=== PATIENT | female | born 1930 | race African-American/Black ===

== ENCOUNTER 2018-01-11 15:02 | Inpatient (IN) | payer OTHER, MEDICARE ==
[2018-01-11] MEDS: SOD CHLORIDE 0.9% 1,000 ML IV (01:30)
[2018-01-11] MEDS: SODIUM CHLORIDE 0.9% 1L BAG IV* (19:26)
[2018-01-11 20:43] LABS: ADD MAN DIFF? NO
[2018-01-11 20:46] LABS: WHITE BLOOD COUNT 13.5 10^3/ul (4.8-10.8)
[2018-01-11 20:46] LABS: ABNORMAL IP MESSAGE 1; BASOPHIL # 0.1 10^3/ul (0.0-0.1); BASOPHILS % 0.4 % (0.0-2.0); EOSINOPHILS # 0.4 10^3/ul (0.0-0.5); EOSINOPHILS % 2.8 % (0.0-7.0); HEMATOCRIT 34.7 % (37.0-47.0); HEMOGLOBIN 12.1 g/dl (12.0-16.0); LYMPHOCYTES # 2.1 10^3/ul (0.8-2.9); LYMPHOCYTES % 15.2 % (15.0-51.0); MEAN CORPUSCULAR HEMOGLOBIN 31.4 pg (29.0-33.0); MEAN CORPUSCULAR HGB CONC 34.9 g/dl (32.0-37.0); MEAN CORPUSCULAR VOLUME 90.1 fl (82.0-101.0); MEAN PLATELET VOLUME 10.6 fl (7.4-10.4); MONOCYTE # 1.8 10^3/ul (0.3-0.9); NEUTROPHIL # 9.2 10^3/ul (1.6-7.5); NEUTROPHILS % 68.1 % (39.0-77.0); PLATELET COUNT 240 10^3/UL (140-415); RED BLOOD COUNT 3.85 10^6/ul (4.20-5.40); RED CELL DISTRIBUTION WIDTH 12.4 % (11.5-14.5)
[2018-01-11 20:57] LABS: POSITIVE DIFF @See below
[2018-01-11 21:07] LABS: ALANINE AMINOTRANSFERASE 32 IU/L (13-69); ALBUMIN 3.8 g/dl (3.3-4.9); ALBUMIN/GLOBULIN RATIO 0.92; ALKALINE PHOSPHATASE 95 IU/L (42-121); ANION GAP 10 (8-16); ASPARTATE AMINO TRANSFERASE 29 IU/L (15-46); BILIRUBIN,INDIRECT 0.3 mg/dl (0-1.1); BILIRUBIN,TOTAL 0.3 mg/dl (0.2-1.3); BLOOD UREA NITROGEN 19 mg/dl (7-20); CALCIUM 9.5 mg/dl (8.4-10.2); CARBON DIOXIDE 34 mmol/L (21-31); CHLORIDE 99 mmol/L (97-110); CREATININE 1.19 mg/dl (0.44-1.00); GLUCOSE 204 mg/dl (70-220); POTASSIUM 3.3 mmol/L (3.5-5.1); SODIUM 140 mmol/L (135-144); TOTAL PROTEIN 7.9 g/dl (6.1-8.1)
[2018-01-11 21:08] LABS: LACTIC ACID 0.8 mmol/L (0.5-2.0)
[2018-01-11 21:16] LABS: INR 1.17; PROTIME 15.1 Sec (11.9-14.9); PT RATIO 1.2
[2018-01-11 21:17] LABS: PARTIAL THROMBOPLASTIN TIME 33.2 Sec (25.0-35.0)
[2018-01-11 21:19] LABS: TROPONIN-I < 0.012 ng/ml (0.00-0.12)
[2018-01-11] MEDS: CEFTRIAXONE 1 GM/50 ML (PMX) 50 ML IVPB (21:39)
[2018-01-11] MEDS: VANCOMYCIN 1 GM (PMX) 250 ML IVPB (21:40)
[2018-01-11 21:45] LABS: LACTIC ACID 0.8 mmol/L (0.5-2.0)
[2018-01-12] MEDS ORDERED: ACETAMINOPHEN 325 MG TAB PO
[2018-01-12] MEDS ORDERED: ONDANSETRON 4 MG INJ IV
[2018-01-12 00:11] LABS: LACTIC ACID 0.9 mmol/L (0.5-2.0)
[2018-01-12] MEDS ORDERED: GLUCOSE GEL 15 GRAM TUBE BUCCAL (03:00)
[2018-01-12] MEDS ORDERED: GLUCAGON 1 MG INJ IM (03:00)
[2018-01-12] MEDS ORDERED: DEXTROSE 50% 50 ML SYRINGE IV ×2 (03:00)
[2018-01-12] MEDS ORDERED: GLUCOSE GEL 15 GRAM TUBE PO ×2 (03:00)
[2018-01-12] MEDS: NACL 0.9% 3 ML SYG IV (06:20)
[2018-01-12 06:30] LABS: ADD MAN DIFF? NO
[2018-01-12 06:40] LABS: WHITE BLOOD COUNT 13.2 10^3/ul (4.8-10.8)
[2018-01-12 06:40] LABS: ABNORMAL IP MESSAGE 1; BASOPHIL # 0.1 10^3/ul (0.0-0.1); BASOPHILS % 0.5 % (0.0-2.0); EOSINOPHILS # 0.4 10^3/ul (0.0-0.5); EOSINOPHILS % 3.2 % (0.0-7.0); HEMOGLOBIN 11.2 g/dl (12.0-16.0); LYMPHOCYTES # 2.3 10^3/ul (0.8-2.9); LYMPHOCYTES % 17.4 % (15.0-51.0); MEAN CORPUSCULAR HGB CONC 33.9 g/dl (32.0-37.0); MEAN CORPUSCULAR VOLUME 91.4 fl (82.0-101.0); MEAN PLATELET VOLUME 10.8 fl (7.4-10.4); MONOCYTE # 1.7 10^3/ul (0.3-0.9); MONOCYTES % 13.2 % (0.0-11.0); NEUTROPHIL # 8.6 10^3/ul (1.6-7.5); NEUTROPHILS % 65.2 % (39.0-77.0); PLATELET COUNT 232 10^3/UL (140-415); RED BLOOD COUNT 3.61 10^6/ul (4.20-5.40); RED CELL DISTRIBUTION WIDTH 12.4 % (11.5-14.5)
[2018-01-12 06:41] LABS: POSITIVE DIFF @See below
[2018-01-12 07:28] LABS: ALANINE AMINOTRANSFERASE 32 IU/L (13-69); ALBUMIN 3.3 g/dl (3.3-4.9); ALBUMIN/GLOBULIN RATIO 0.86; ALKALINE PHOSPHATASE 90 IU/L (42-121); ANION GAP 10 (8-16); ASPARTATE AMINO TRANSFERASE 29 IU/L (15-46); BILIRUBIN,INDIRECT 0.5 mg/dl (0-1.1); BILIRUBIN,TOTAL 0.5 mg/dl (0.2-1.3); BLOOD UREA NITROGEN 15 mg/dl (7-20); CALCIUM 9.1 mg/dl (8.4-10.2); CARBON DIOXIDE 35 mmol/L (21-31); CHLORIDE 100 mmol/L (97-110); CHOLESTEROL 109 mg/dl (100-200); CREATININE 1.02 mg/dl (0.44-1.00); GLUCOSE 152 mg/dl (70-220); HDL CHOLESTEROL 36 mg/dl (33-92); LDL CHOLESTEROL,CALCULATED 61 mg/dl; POTASSIUM 3.5 mmol/L (3.5-5.1); SODIUM 141 mmol/L (135-144); TOTAL PROTEIN 7.1 g/dl (6.1-8.1); TRIGLYCERIDES 58 mg/dl (0-149)
[2018-01-12 07:45] LABS: HEMOGLOBIN A1C 6.1 % (0-5.9)
[2018-01-12] MEDS: LEVALBUTEROL (NEB) 0.63 MG/3 ML AMP HHN ×2 (08:05→20:53)
[2018-01-12] MEDS: IPRATROPIUM (NEB) 0.5 MG/2.5 ML AMP HHN ×2 (08:05→20:53)
[2018-01-12] MEDS: GUAIFENESIN 20 MG/ML 5ML CUP PO (08:28)
[2018-01-12] MEDS: TIMOLOL 0.5% 5 ML OPH BOTH EYES (08:28)
[2018-01-12] MEDS: metFORMIN 500 MG TAB PO ×4 (08:29→17:36)
[2018-01-12] MEDS: INSULIN ASPART [NOVOLOG] 3 ML PEN SC ×4 (08:34→20:35)
[2018-01-12] MEDS: CHOLECALCIFEROL 400 UNITS TAB PO (09:31)
[2018-01-12] MEDS: ALLOPURINOL 300 MG TAB PO (09:32)
[2018-01-12] MEDS: AZITHROMYCIN 500MG/NS (PMX) 250 ML IVPB (09:33)
[2018-01-12] MEDS: AMLODIPINE 2.5 MG TAB PO (09:33)
[2018-01-12] MEDS: CEFTRIAXONE 1 GM/50 ML (PMX) 50 ML IVPB ×2 (10:55→20:31)
[2018-01-12] MEDS: ATORVASTATIN 20 MG TAB PO (17:33)
[2018-01-12] MEDS: BIMATOPROST 0.01% 2.5 ML BTL BOTH EYES (20:31)
[2018-01-13] MEDS: ACCU-CHEK XX (02:15)
[2018-01-13 05:47] LABS: ADD MAN DIFF? NO
[2018-01-13 05:58] LABS: WHITE BLOOD COUNT 11.9 10^3/ul (4.8-10.8)
[2018-01-13 05:58] LABS: BASOPHIL # 0.1 10^3/ul (0.0-0.1); BASOPHILS % 0.6 % (0.0-2.0); EOSINOPHILS # 0.5 10^3/ul (0.0-0.5); EOSINOPHILS % 3.9 % (0.0-7.0); LYMPHOCYTES # 2.2 10^3/ul (0.8-2.9); LYMPHOCYTES % 18.3 % (15.0-51.0); MEAN CORPUSCULAR HEMOGLOBIN 31.7 pg (29.0-33.0); MEAN CORPUSCULAR HGB CONC 34.4 g/dl (32.0-37.0); MEAN CORPUSCULAR VOLUME 92.2 fl (82.0-101.0); MEAN PLATELET VOLUME 11.2 fl (7.4-10.4); MONOCYTE # 1.5 10^3/ul (0.3-0.9); MONOCYTES % 12.4 % (0.0-11.0); NEUTROPHIL # 7.6 10^3/ul (1.6-7.5); NEUTROPHILS % 64.1 % (39.0-77.0); PLATELET COUNT 207 10^3/UL (140-415); RED BLOOD COUNT 3.47 10^6/ul (4.20-5.40); RED CELL DISTRIBUTION WIDTH 12.7 % (11.5-14.5)
[2018-01-13 06:19] LABS: ALANINE AMINOTRANSFERASE 35 IU/L (13-69); ALBUMIN 3.2 g/dl (3.3-4.9); ALKALINE PHOSPHATASE 77 IU/L (42-121); ANION GAP 13 (8-16); ASPARTATE AMINO TRANSFERASE 37 IU/L (15-46); BILIRUBIN,INDIRECT 0.2 mg/dl (0-1.1); BILIRUBIN,TOTAL 0.2 mg/dl (0.2-1.3); BLOOD UREA NITROGEN 16 mg/dl (7-20); CALCIUM 8.9 mg/dl (8.4-10.2); CARBON DIOXIDE 34 mmol/L (21-31); CHLORIDE 100 mmol/L (97-110); CREATININE 0.95 mg/dl (0.44-1.00); GLUCOSE 146 mg/dl (70-220); POTASSIUM 3.7 mmol/L (3.5-5.1); SODIUM 143 mmol/L (135-144); TOTAL PROTEIN 7.1 g/dl (6.1-8.1)
[2018-01-13 06:20] LABS: ALBUMIN/GLOBULIN RATIO 0.82
[2018-01-13] MEDS: ALLOPURINOL 300 MG TAB PO (08:32)
[2018-01-13] MEDS: AZITHROMYCIN 500MG/NS (PMX) 250 ML IVPB (08:32)
[2018-01-13] MEDS: CHOLECALCIFEROL 400 UNITS TAB PO (08:32)
[2018-01-13] MEDS: metFORMIN 500 MG TAB PO ×2 (08:32→17:28)
[2018-01-13] MEDS: AMLODIPINE 2.5 MG TAB PO (08:33)
[2018-01-13] MEDS: TIMOLOL 0.5% 5 ML OPH BOTH EYES (08:33)
[2018-01-13] MEDS: INSULIN ASPART [NOVOLOG] 3 ML PEN SC ×4 (08:35→21:00)
[2018-01-13 09:02] LABS: PHOSPHORUS 3.8 mg/dl (2.5-4.9)
[2018-01-13 09:02] LABS: MAGNESIUM 1.7 mg/dl (1.7-2.5)
[2018-01-13] MEDS: CEFTRIAXONE 1 GM/50 ML (PMX) 50 ML IVPB ×2 (09:59→21:02)
[2018-01-13] MEDS: INFLUENZA VIRUS VACCINE 0.5 ML (DISPENSING) IM* (11:36)
[2018-01-13] MEDS: ENOXAPARIN 40 MG/0.4 ML SYG SC (15:30)
[2018-01-13] MEDS: ATORVASTATIN 20 MG TAB PO (17:28)
[2018-01-13] MEDS ORDERED: VITAMIN A & D 5 GM OINT PACKET TOP (19:37)
[2018-01-13] MEDS: BIMATOPROST 0.01% 2.5 ML BTL BOTH EYES (21:02)
[2018-01-13] MEDS: IPRATROPIUM (NEB) 0.5 MG/2.5 ML AMP HHN (21:44)
[2018-01-13] MEDS: LEVALBUTEROL (NEB) 0.63 MG/3 ML AMP HHN (21:44)
[2018-01-14] MEDS: ACCU-CHEK XX (02:00)
[2018-01-14 06:43] LABS: ADD MAN DIFF? NO
[2018-01-14 06:53] LABS: BASOPHIL # 0.1 10^3/ul (0.0-0.1); BASOPHILS % 0.7 % (0.0-2.0); EOSINOPHILS # 0.4 10^3/ul (0.0-0.5); HEMATOCRIT 31.7 % (37.0-47.0); HEMOGLOBIN 10.7 g/dl (12.0-16.0); LYMPHOCYTES # 2.3 10^3/ul (0.8-2.9); LYMPHOCYTES % 22.8 % (15.0-51.0); MEAN CORPUSCULAR HEMOGLOBIN 31.3 pg (29.0-33.0); MEAN CORPUSCULAR HGB CONC 33.8 g/dl (32.0-37.0); MEAN CORPUSCULAR VOLUME 92.7 fl (82.0-101.0); MEAN PLATELET VOLUME 11.1 fl (7.4-10.4); MONOCYTE # 1.1 10^3/ul (0.3-0.9); MONOCYTES % 11.1 % (0.0-11.0); NEUTROPHIL # 6.2 10^3/ul (1.6-7.5); NEUTROPHILS % 60.8 % (39.0-77.0); PLATELET COUNT 255 10^3/UL (140-415); RED BLOOD COUNT 3.42 10^6/ul (4.20-5.40); RED CELL DISTRIBUTION WIDTH 12.6 % (11.5-14.5)
[2018-01-14 06:53] LABS: WHITE BLOOD COUNT 10.2 10^3/ul (4.8-10.8)
[2018-01-14 07:27] LABS: ANION GAP 10 (8-16); BLOOD UREA NITROGEN 18 mg/dl (7-20); CALCIUM 9.1 mg/dl (8.4-10.2); CARBON DIOXIDE 35 mmol/L (21-31); CHLORIDE 101 mmol/L (97-110); CREATININE 0.91 mg/dl (0.44-1.00); GLUCOSE 144 mg/dl (70-220); POTASSIUM 3.7 mmol/L (3.5-5.1); SODIUM 142 mmol/L (135-144)
[2018-01-14] MEDS: INSULIN ASPART [NOVOLOG] 3 ML PEN SC ×4 (08:15→21:00)
[2018-01-14] MEDS: ENOXAPARIN 40 MG/0.4 ML SYG SC (08:34)
[2018-01-14] MEDS: CEFTRIAXONE 1 GM/50 ML (PMX) 50 ML IVPB (08:36)
[2018-01-14] MEDS: AZITHROMYCIN 500MG/NS (PMX) 250 ML IVPB (08:36)
[2018-01-14] MEDS: metFORMIN 500 MG TAB PO ×2 (08:37→17:48)
[2018-01-14] MEDS: CHOLECALCIFEROL 400 UNITS TAB PO (08:37)
[2018-01-14] MEDS: ALLOPURINOL 300 MG TAB PO (08:37)
[2018-01-14] MEDS: AMLODIPINE 2.5 MG TAB PO (08:37)
[2018-01-14] MEDS: TIMOLOL 0.5% 5 ML OPH BOTH EYES (08:38)
[2018-01-14] MEDS: LEVALBUTEROL (NEB) 0.63 MG/3 ML AMP HHN ×4 (10:46→21:14)
[2018-01-14] MEDS: IPRATROPIUM (NEB) 0.5 MG/2.5 ML AMP HHN ×4 (10:46→21:14)
[2018-01-14] MEDS ORDERED: IPRATROPIUM (NEB) 0.5 MG/2.5 ML AMP HHN (13:00)
[2018-01-14] MEDS ORDERED: LEVALBUTEROL (NEB) 0.63 MG/3 ML AMP HHN (13:00)
[2018-01-14] MEDS: LEVOFLOXACIN 500 MG TAB PO (14:04)
[2018-01-14] MEDS: ATORVASTATIN 20 MG TAB PO (17:47)
[2018-01-14] MEDS: BIMATOPROST 0.01% 2.5 ML BTL BOTH EYES (21:00)
[2018-01-15] MEDS: LEVALBUTEROL (NEB) 0.63 MG/3 ML AMP HHN ×5 (01:00→20:44)
[2018-01-15] MEDS: IPRATROPIUM (NEB) 0.5 MG/2.5 ML AMP HHN ×5 (01:00→20:44)
[2018-01-15] MEDS: ACCU-CHEK XX (01:12)
[2018-01-15] MEDS: INSULIN ASPART [NOVOLOG] 3 ML PEN SC ×4 (08:15→20:31)
[2018-01-15] MEDS: ALLOPURINOL 300 MG TAB PO (08:25)
[2018-01-15] MEDS: LEVOFLOXACIN 500 MG TAB PO (08:25)
[2018-01-15] MEDS: AMLODIPINE 2.5 MG TAB PO (08:25)
[2018-01-15] MEDS: CHOLECALCIFEROL 400 UNITS TAB PO (08:25)
[2018-01-15] MEDS: ENOXAPARIN 40 MG/0.4 ML SYG SC (08:26)
[2018-01-15] MEDS: metFORMIN 500 MG TAB PO ×3 (08:31→18:27)
[2018-01-15] MEDS: TIMOLOL 0.5% 5 ML OPH BOTH EYES (08:34)
[2018-01-15] MEDS: ONDANSETRON 4 MG INJ IV (11:51)
[2018-01-15] MEDS: ONDANSETRON 4 MG INJ IM (13:38)
[2018-01-15] MEDS: ATORVASTATIN 20 MG TAB PO (18:27)
[2018-01-15] MEDS: PANTOPRAZOLE (EC) 40 MG TAB PO (18:32)
[2018-01-15] MEDS: BIMATOPROST 0.01% 2.5 ML BTL BOTH EYES (20:27)
[2018-01-16] MEDS: LEVALBUTEROL (NEB) 0.63 MG/3 ML AMP HHN ×5 (01:00→20:38)
[2018-01-16] MEDS: ACCU-CHEK XX (02:00)
[2018-01-16] MEDS: PANTOPRAZOLE (EC) 40 MG TAB PO (05:54)
[2018-01-16 06:11] LABS: ADD MAN DIFF? NO
[2018-01-16 06:22] LABS: BASOPHIL # 0.1 10^3/ul (0.0-0.1); BASOPHILS % 0.6 % (0.0-2.0); EOSINOPHILS # 0.2 10^3/ul (0.0-0.5); EOSINOPHILS % 2.4 % (0.0-7.0); HEMATOCRIT 31.1 % (37.0-47.0); HEMOGLOBIN 10.2 g/dl (12.0-16.0); LYMPHOCYTES # 1.6 10^3/ul (0.8-2.9); MEAN CORPUSCULAR HEMOGLOBIN 30.4 pg (29.0-33.0); MEAN CORPUSCULAR HGB CONC 32.8 g/dl (32.0-37.0); MEAN CORPUSCULAR VOLUME 92.6 fl (82.0-101.0); MEAN PLATELET VOLUME 10.1 fl (7.4-10.4); MONOCYTES % 9.6 % (0.0-11.0); NEUTROPHIL # 7.1 10^3/ul (1.6-7.5); NEUTROPHILS % 70.6 % (39.0-77.0); PLATELET COUNT 282 10^3/UL (140-415); RED BLOOD COUNT 3.36 10^6/ul (4.20-5.40); RED CELL DISTRIBUTION WIDTH 12.4 % (11.5-14.5)
[2018-01-16 06:47] LABS: ANION GAP 10 (8-16); BLOOD UREA NITROGEN 14 mg/dl (7-20); CALCIUM 9.4 mg/dl (8.4-10.2); CARBON DIOXIDE 37 mmol/L (21-31); CHLORIDE 100 mmol/L (97-110); GLUCOSE 172 mg/dl (70-220); POTASSIUM 3.7 mmol/L (3.5-5.1); SODIUM 143 mmol/L (135-144)
[2018-01-16] MEDS: IPRATROPIUM (NEB) 0.5 MG/2.5 ML AMP HHN ×4 (08:08→20:38)
[2018-01-16] MEDS: INSULIN ASPART [NOVOLOG] 3 ML PEN SC ×4 (09:40→20:34)
[2018-01-16] MEDS: CHOLECALCIFEROL 400 UNITS TAB PO (09:48)
[2018-01-16] MEDS: LEVOFLOXACIN 500 MG TAB PO (09:48)
[2018-01-16] MEDS: ALLOPURINOL 300 MG TAB PO (09:49)
[2018-01-16] MEDS: metFORMIN 500 MG TAB PO ×2 (09:49→18:16)
[2018-01-16] MEDS: TIMOLOL 0.5% 5 ML OPH BOTH EYES (09:50)
[2018-01-16] MEDS: AMLODIPINE 2.5 MG TAB PO (09:50)
[2018-01-16] MEDS: ENOXAPARIN 40 MG/0.4 ML SYG SC (09:54)
[2018-01-16] MEDS: ATORVASTATIN 20 MG TAB PO (18:16)
[2018-01-16] MEDS: BIMATOPROST 0.01% 2.5 ML BTL BOTH EYES (20:31)
[2018-01-17] MEDS: ACCU-CHEK XX (00:30)
[2018-01-17] MEDS: PANTOPRAZOLE (EC) 40 MG TAB PO (06:17)
[2018-01-17 06:26] LABS: ADD MAN DIFF? NO
[2018-01-17 06:30] LABS: WHITE BLOOD COUNT 11.1 10^3/ul (4.8-10.8)
[2018-01-17 06:30] LABS: BASOPHIL # 0.1 10^3/ul (0.0-0.1); BASOPHILS % 0.6 % (0.0-2.0); EOSINOPHILS # 0.3 10^3/ul (0.0-0.5); EOSINOPHILS % 2.9 % (0.0-7.0); HEMATOCRIT 30.1 % (37.0-47.0); LYMPHOCYTES # 1.9 10^3/ul (0.8-2.9); LYMPHOCYTES % 17.2 % (15.0-51.0); MEAN CORPUSCULAR HEMOGLOBIN 30.9 pg (29.0-33.0); MEAN CORPUSCULAR HGB CONC 33.2 g/dl (32.0-37.0); MEAN CORPUSCULAR VOLUME 92.9 fl (82.0-101.0); MEAN PLATELET VOLUME 10.2 fl (7.4-10.4); MONOCYTES % 9.2 % (0.0-11.0); NEUTROPHIL # 7.7 10^3/ul (1.6-7.5); NEUTROPHILS % 69.4 % (39.0-77.0); PLATELET COUNT 284 10^3/UL (140-415); RED BLOOD COUNT 3.24 10^6/ul (4.20-5.40); RED CELL DISTRIBUTION WIDTH 12.5 % (11.5-14.5)
[2018-01-17 06:55] LABS: ANION GAP 11 (8-16); BLOOD UREA NITROGEN 16 mg/dl (7-20); CALCIUM 9.3 mg/dl (8.4-10.2); CARBON DIOXIDE 35 mmol/L (21-31); CHLORIDE 99 mmol/L (97-110); CREATININE 1.02 mg/dl (0.44-1.00); GLUCOSE 139 mg/dl (70-220); SODIUM 141 mmol/L (135-144)
[2018-01-17] MEDS: LEVALBUTEROL (NEB) 0.63 MG/3 ML AMP HHN ×4 (08:07→21:53)
[2018-01-17] MEDS: IPRATROPIUM (NEB) 0.5 MG/2.5 ML AMP HHN ×4 (08:07→21:53)
[2018-01-17] MEDS: LEVOFLOXACIN 500 MG TAB PO (08:17)
[2018-01-17] MEDS: AMLODIPINE 2.5 MG TAB PO (08:17)
[2018-01-17] MEDS: ALLOPURINOL 300 MG TAB PO (08:17)
[2018-01-17] MEDS: CHOLECALCIFEROL 400 UNITS TAB PO (08:17)
[2018-01-17] MEDS: TIMOLOL 0.5% 5 ML OPH BOTH EYES (08:18)
[2018-01-17] MEDS: INSULIN ASPART [NOVOLOG] 3 ML PEN SC ×4 (08:23→20:20)
[2018-01-17] MEDS: ENOXAPARIN 40 MG/0.4 ML SYG SC (08:24)
[2018-01-17] MEDS: metFORMIN 500 MG TAB PO ×2 (08:26→18:10)
[2018-01-17] MEDS: ATORVASTATIN 20 MG TAB PO (18:10)
[2018-01-17] MEDS: BIMATOPROST 0.01% 2.5 ML BTL BOTH EYES (20:16)
[2018-01-18] MEDS: ACCU-CHEK XX (01:27)
[2018-01-18] MEDS: PANTOPRAZOLE (EC) 40 MG TAB PO (05:56)
[2018-01-18 06:12] LABS: ADD MAN DIFF? NO
[2018-01-18 06:21] LABS: BASOPHIL # 0.1 10^3/ul (0.0-0.1); BASOPHILS % 0.6 % (0.0-2.0); EOSINOPHILS # 0.3 10^3/ul (0.0-0.5); EOSINOPHILS % 2.9 % (0.0-7.0); HEMATOCRIT 33.9 % (37.0-47.0); HEMOGLOBIN 11.4 g/dl (12.0-16.0); LYMPHOCYTES # 2.1 10^3/ul (0.8-2.9); MEAN CORPUSCULAR HEMOGLOBIN 30.9 pg (29.0-33.0); MEAN CORPUSCULAR HGB CONC 33.6 g/dl (32.0-37.0); MEAN CORPUSCULAR VOLUME 91.9 fl (82.0-101.0); MEAN PLATELET VOLUME 10.8 fl (7.4-10.4); MONOCYTE # 0.9 10^3/ul (0.3-0.9); MONOCYTES % 7.5 % (0.0-11.0); NEUTROPHIL # 8.3 10^3/ul (1.6-7.5); NEUTROPHILS % 70.2 % (39.0-77.0); PLATELET COUNT 290 10^3/UL (140-415); RED BLOOD COUNT 3.69 10^6/ul (4.20-5.40); RED CELL DISTRIBUTION WIDTH 12.5 % (11.5-14.5)
[2018-01-18 06:21] LABS: WHITE BLOOD COUNT 11.7 10^3/ul (4.8-10.8)
[2018-01-18 06:35] LABS: ALANINE AMINOTRANSFERASE 38 IU/L (13-69); ALBUMIN 3.6 g/dl (3.3-4.9); ALBUMIN/GLOBULIN RATIO 0.83; ALKALINE PHOSPHATASE 80 IU/L (42-121); ANION GAP 14 (8-16); ASPARTATE AMINO TRANSFERASE 49 IU/L (15-46); BILIRUBIN,INDIRECT 0.4 mg/dl (0-1.1); BILIRUBIN,TOTAL 0.4 mg/dl (0.2-1.3); BLOOD UREA NITROGEN 15 mg/dl (7-20); CALCIUM 9.6 mg/dl (8.4-10.2); CARBON DIOXIDE 35 mmol/L (21-31); CHLORIDE 100 mmol/L (97-110); CREATININE 0.99 mg/dl (0.44-1.00); GLUCOSE 128 mg/dl (70-220); POTASSIUM 3.9 mmol/L (3.5-5.1); SODIUM 145 mmol/L (135-144); TOTAL PROTEIN 7.9 g/dl (6.1-8.1)
[2018-01-18] MEDS: INSULIN ASPART [NOVOLOG] 3 ML PEN SC ×4 (08:15→20:11)
[2018-01-18] MEDS: LEVALBUTEROL (NEB) 0.63 MG/3 ML AMP HHN ×4 (09:04→21:54)
[2018-01-18] MEDS: IPRATROPIUM (NEB) 0.5 MG/2.5 ML AMP HHN ×4 (09:04→21:54)
[2018-01-18] MEDS: ALLOPURINOL 300 MG TAB PO (09:29)
[2018-01-18] MEDS: CHOLECALCIFEROL 400 UNITS TAB PO (09:29)
[2018-01-18] MEDS: LEVOFLOXACIN 500 MG TAB PO (09:29)
[2018-01-18] MEDS: TIMOLOL 0.5% 5 ML OPH BOTH EYES (09:29)
[2018-01-18] MEDS: AMLODIPINE 2.5 MG TAB PO (09:30)
[2018-01-18] MEDS: ENOXAPARIN 40 MG/0.4 ML SYG SC (09:34)
[2018-01-18] MEDS: metFORMIN 500 MG TAB PO ×2 (09:35→17:29)
[2018-01-18 14:56] LABS: URIC ACID 3.6 mg/dl (3.1-7.9)
[2018-01-18 15:04] LABS: B-TYPE NATRIURETIC PEPTIDE 463 PG/ML (0-450)
[2018-01-18] MEDS: FUROSEMIDE 40 MG TAB PO (15:57)
[2018-01-18] MEDS: ATORVASTATIN 20 MG TAB PO (17:29)
[2018-01-18] MEDS: BIMATOPROST 0.01% 2.5 ML BTL BOTH EYES (20:11)
[2018-01-19] MEDS: ACCU-CHEK XX (02:00)
[2018-01-19 05:36] LABS: ADD MAN DIFF? NO
[2018-01-19 05:39] LABS: BASOPHIL # 0.1 10^3/ul (0.0-0.1); BASOPHILS % 0.8 % (0.0-2.0); EOSINOPHILS # 0.4 10^3/ul (0.0-0.5); EOSINOPHILS % 3.2 % (0.0-7.0); HEMATOCRIT 30.3 % (37.0-47.0); HEMOGLOBIN 10.4 g/dl (12.0-16.0); LYMPHOCYTES # 2.1 10^3/ul (0.8-2.9); LYMPHOCYTES % 18.5 % (15.0-51.0); MEAN CORPUSCULAR HEMOGLOBIN 31.1 pg (29.0-33.0); MEAN CORPUSCULAR HGB CONC 34.3 g/dl (32.0-37.0); MEAN CORPUSCULAR VOLUME 90.7 fl (82.0-101.0); MEAN PLATELET VOLUME 10.6 fl (7.4-10.4); MONOCYTE # 0.9 10^3/ul (0.3-0.9); MONOCYTES % 8.2 % (0.0-11.0); NEUTROPHIL # 7.8 10^3/ul (1.6-7.5); NEUTROPHILS % 68.6 % (39.0-77.0); PLATELET COUNT 283 10^3/UL (140-415); RED BLOOD COUNT 3.34 10^6/ul (4.20-5.40); RED CELL DISTRIBUTION WIDTH 12.5 % (11.5-14.5)
[2018-01-19 05:39] LABS: WHITE BLOOD COUNT 11.4 10^3/ul (4.8-10.8)
[2018-01-19] MEDS: PANTOPRAZOLE (EC) 40 MG TAB PO (05:58)
[2018-01-19 06:02] LABS: MAGNESIUM 1.2 mg/dl (1.7-2.5)
[2018-01-19 06:04] LABS: ANION GAP 11 (8-16); BLOOD UREA NITROGEN 20 mg/dl (7-20); CALCIUM 9.4 mg/dl (8.4-10.2); CARBON DIOXIDE 38 mmol/L (21-31); CHLORIDE 98 mmol/L (97-110); CREATININE 0.93 mg/dl (0.44-1.00); GLUCOSE 124 mg/dl (70-220); POTASSIUM 3.9 mmol/L (3.5-5.1); SODIUM 143 mmol/L (135-144)
[2018-01-19] MEDS: INSULIN ASPART [NOVOLOG] 3 ML PEN SC ×4 (08:15→20:06)
[2018-01-19] MEDS: FUROSEMIDE 40 MG TAB PO (08:20)
[2018-01-19] MEDS: LEVOFLOXACIN 500 MG TAB PO (08:21)
[2018-01-19] MEDS: CHOLECALCIFEROL 400 UNITS TAB PO (08:21)
[2018-01-19] MEDS: ALLOPURINOL 300 MG TAB PO (08:21)
[2018-01-19] MEDS: AMLODIPINE 2.5 MG TAB PO (08:21)
[2018-01-19] MEDS: TIMOLOL 0.5% 5 ML OPH BOTH EYES (08:22)
[2018-01-19] MEDS: metFORMIN 500 MG TAB PO ×2 (08:22→17:46)
[2018-01-19] MEDS: ENOXAPARIN 40 MG/0.4 ML SYG SC (08:26)
[2018-01-19] MEDS: IPRATROPIUM (NEB) 0.5 MG/2.5 ML AMP HHN ×4 (09:00→20:50)
[2018-01-19] MEDS: LEVALBUTEROL (NEB) 0.63 MG/3 ML AMP HHN ×4 (09:00→20:50)
[2018-01-19 09:45] LABS: AADO2 Arterial 38.6 mmHg (7.0-24.0); Allen Test ACCEPTAB; Arterial Base Excess 11.7 mmol/L (-3.0-3); Arterial Blood Gas Oxygen Sat 89.3 mmHG (95.0-100.0); Arterial COHb 0.2 % (0.0-3.0); Arterial Fraction of Oxyhgb 88.9 % (93.0-99.0); Arterial HCO3 36.6 mmol/L (22.0-26.0); Arterial MetHb 0.2 % (0.0-1.5); MODE ROOM AIR; Site Right Radial
[2018-01-19] MEDS: MAGNESIUM SULFATE 4 GM/100 ML 100 ML IVPB (17:43)
[2018-01-19] MEDS: ATORVASTATIN 20 MG TAB PO (17:45)
[2018-01-19] MEDS: BIMATOPROST 0.01% 2.5 ML BTL BOTH EYES (20:07)
[2018-01-19] MEDS: MAG SULFATE 2GM IN 50 ML IVPB (22:40)
[2018-01-20] MEDS: ACCU-CHEK XX (01:39)
[2018-01-20] MEDS: PANTOPRAZOLE (EC) 40 MG TAB PO (05:28)
[2018-01-20] MEDS: IPRATROPIUM (NEB) 0.5 MG/2.5 ML AMP HHN ×4 (08:20→20:12)
[2018-01-20] MEDS: LEVALBUTEROL (NEB) 0.63 MG/3 ML AMP HHN ×4 (08:20→20:12)
[2018-01-20] MEDS: LEVOFLOXACIN 500 MG TAB PO (09:06)
[2018-01-20] MEDS: ALLOPURINOL 300 MG TAB PO (09:06)
[2018-01-20] MEDS: metFORMIN 500 MG TAB PO ×2 (09:06→17:59)
[2018-01-20] MEDS: CHOLECALCIFEROL 400 UNITS TAB PO (09:06)
[2018-01-20] MEDS: FUROSEMIDE 40 MG TAB PO (09:08)
[2018-01-20] MEDS: TIMOLOL 0.5% 5 ML OPH BOTH EYES (09:08)
[2018-01-20] MEDS: AMLODIPINE 2.5 MG TAB PO (09:08)
[2018-01-20] MEDS: ENOXAPARIN 40 MG/0.4 ML SYG SC (09:15)
[2018-01-20] MEDS: INSULIN ASPART [NOVOLOG] 3 ML PEN SC ×4 (09:17→20:37)
[2018-01-20 09:28] LABS: ADD MAN DIFF? NO
[2018-01-20 09:30] LABS: BASOPHIL # 0.1 10^3/ul (0.0-0.1); BASOPHILS % 0.8 % (0.0-2.0); EOSINOPHILS # 0.2 10^3/ul (0.0-0.5); EOSINOPHILS % 2.2 % (0.0-7.0); HEMATOCRIT 31.5 % (37.0-47.0); HEMOGLOBIN 10.7 g/dl (12.0-16.0); LYMPHOCYTES # 2.1 10^3/ul (0.8-2.9); LYMPHOCYTES % 21.7 % (15.0-51.0); MEAN CORPUSCULAR HEMOGLOBIN 30.7 pg (29.0-33.0); MEAN CORPUSCULAR VOLUME 90.3 fl (82.0-101.0); MONOCYTE # 0.8 10^3/ul (0.3-0.9); NEUTROPHIL # 6.6 10^3/ul (1.6-7.5); NEUTROPHILS % 66.8 % (39.0-77.0); PLATELET COUNT 349 10^3/UL (140-415); RED BLOOD COUNT 3.49 10^6/ul (4.20-5.40); RED CELL DISTRIBUTION WIDTH 12.7 % (11.5-14.5)
[2018-01-20 09:30] LABS: WHITE BLOOD COUNT 9.9 10^3/ul (4.8-10.8)
[2018-01-20 09:59] LABS: BLOOD UREA NITROGEN 23 mg/dl (7-20); CALCIUM 9.3 mg/dl (8.4-10.2); CHLORIDE 92 mmol/L (97-110); CREATININE 1.01 mg/dl (0.44-1.00); GLUCOSE 144 mg/dl (70-220); POTASSIUM 3.6 mmol/L (3.5-5.1); SODIUM 141 mmol/L (135-144)
[2018-01-20 10:02] LABS: ANION GAP 13 (8-16)
[2018-01-20 10:15] LABS: CARBON DIOXIDE 38 mmol/L (21-31)
[2018-01-20] MEDS: ATORVASTATIN 20 MG TAB PO (17:58)
[2018-01-20] MEDS: BIMATOPROST 0.01% 2.5 ML BTL BOTH EYES (20:38)
[2018-01-21] MEDS: ACCU-CHEK XX (01:12)
[2018-01-21] MEDS: PANTOPRAZOLE (EC) 40 MG TAB PO (05:41)
[2018-01-21 07:27] LABS: BLOOD UREA NITROGEN 25 mg/dl (7-20); CHLORIDE 94 mmol/L (97-110); GLUCOSE 118 mg/dl (70-220); POTASSIUM 3.3 mmol/L (3.5-5.1); SODIUM 142 mmol/L (135-144)
[2018-01-21 07:28] LABS: ANION GAP 11 (8-16)
[2018-01-21 07:39] LABS: CARBON DIOXIDE 35 mmol/L (21-31)
[2018-01-21] MEDS ORDERED: SOD CHLORIDE 0.9% 250 ML IV* (08:11)
[2018-01-21] MEDS: INSULIN ASPART [NOVOLOG] 3 ML PEN SC ×4 (08:15→21:00)
[2018-01-21] MEDS ORDERED: FUROSEMIDE 40 MG INJ IV (08:30)
[2018-01-21] MEDS: LEVOFLOXACIN 500 MG TAB PO (08:38)
[2018-01-21] MEDS: metFORMIN 500 MG TAB PO ×3 (08:38→18:00)
[2018-01-21] MEDS: ALLOPURINOL 300 MG TAB PO (08:38)
[2018-01-21] MEDS: FUROSEMIDE 40 MG TAB PO (08:40)
[2018-01-21] MEDS: CHOLECALCIFEROL 400 UNITS TAB PO (08:40)
[2018-01-21] MEDS: AMLODIPINE 2.5 MG TAB PO (08:40)
[2018-01-21] MEDS: TIMOLOL 0.5% 5 ML OPH BOTH EYES (08:41)
[2018-01-21] MEDS: ENOXAPARIN 40 MG/0.4 ML SYG SC (08:44)
[2018-01-21] MEDS: IPRATROPIUM (NEB) 0.5 MG/2.5 ML AMP HHN ×4 (09:01→20:12)
[2018-01-21] MEDS: LEVALBUTEROL (NEB) 0.63 MG/3 ML AMP HHN ×4 (09:01→20:12)
[2018-01-21] MEDS: POTASSIUM CHLORIDE (SR) 20 MEQ TAB PO (16:50)
[2018-01-21] MEDS: ATORVASTATIN 20 MG TAB PO (17:47)
[2018-01-21] MEDS: BIMATOPROST 0.01% 2.5 ML BTL BOTH EYES (21:21)
[2018-01-22] MEDS: ACCU-CHEK XX (02:28)
[2018-01-22] MEDS: PANTOPRAZOLE (EC) 40 MG TAB PO (06:24)
[2018-01-22 06:54] LABS: ANION GAP 16 (8-16); BLOOD UREA NITROGEN 28 mg/dl (7-20); CALCIUM 9.1 mg/dl (8.4-10.2); CARBON DIOXIDE 35 mmol/L (21-31); CHLORIDE 96 mmol/L (97-110); GLUCOSE 134 mg/dl (70-220); POTASSIUM 3.6 mmol/L (3.5-5.1); SODIUM 143 mmol/L (135-144)
[2018-01-22] MEDS: metFORMIN 500 MG TAB PO ×2 (08:15→18:12)
[2018-01-22] MEDS: LEVOFLOXACIN 500 MG TAB PO (08:16)
[2018-01-22] MEDS: TIMOLOL 0.5% 5 ML OPH BOTH EYES (08:16)
[2018-01-22] MEDS: FUROSEMIDE 40 MG TAB PO (08:16)
[2018-01-22] MEDS: ALLOPURINOL 300 MG TAB PO (08:17)
[2018-01-22] MEDS: CHOLECALCIFEROL 400 UNITS TAB PO (08:17)
[2018-01-22] MEDS: AMLODIPINE 2.5 MG TAB PO (08:17)
[2018-01-22] MEDS: INSULIN ASPART [NOVOLOG] 3 ML PEN SC ×4 (08:22→20:42)
[2018-01-22] MEDS: ENOXAPARIN 40 MG/0.4 ML SYG SC (08:22)
[2018-01-22] MEDS: LEVALBUTEROL (NEB) 0.63 MG/3 ML AMP HHN ×4 (08:28→20:46)
[2018-01-22] MEDS: IPRATROPIUM (NEB) 0.5 MG/2.5 ML AMP HHN ×4 (08:28→20:46)
[2018-01-22] MEDS: ATORVASTATIN 20 MG TAB PO (18:12)
[2018-01-22] MEDS: BIMATOPROST 0.01% 2.5 ML BTL BOTH EYES (20:37)
[2018-01-23] MEDS: ACCU-CHEK XX (02:01)
[2018-01-23] MEDS: PANTOPRAZOLE (EC) 40 MG TAB PO (06:03)
[2018-01-23 06:21] LABS: ANION GAP 19 (8-16); BLOOD UREA NITROGEN 29 mg/dl (7-20); CARBON DIOXIDE 32 mmol/L (21-31); CHLORIDE 98 mmol/L (97-110); CREATININE 0.97 mg/dl (0.44-1.00); GLUCOSE 119 mg/dl (70-220); POTASSIUM 5.1 mmol/L (3.5-5.1); SODIUM 144 mmol/L (135-144)
[2018-01-23] MEDS: IPRATROPIUM (NEB) 0.5 MG/2.5 ML AMP HHN ×2 (08:18→13:00)
[2018-01-23] MEDS: LEVALBUTEROL (NEB) 0.63 MG/3 ML AMP HHN ×2 (08:18→13:00)
[2018-01-23] MEDS: TIMOLOL 0.5% 5 ML OPH BOTH EYES (08:27)
[2018-01-23] MEDS: metFORMIN 500 MG TAB PO (08:27)
[2018-01-23] MEDS: ALLOPURINOL 300 MG TAB PO (08:28)
[2018-01-23] MEDS: ENOXAPARIN 40 MG/0.4 ML SYG SC (08:28)
[2018-01-23] MEDS: INSULIN ASPART [NOVOLOG] 3 ML PEN SC ×2 (08:28→12:29)
[2018-01-23] MEDS: CHOLECALCIFEROL 400 UNITS TAB PO (08:29)
[2018-01-23] MEDS: AMLODIPINE 2.5 MG TAB PO (08:30)
[2018-01-23] MEDS: LEVOFLOXACIN 500 MG TAB PO (08:30)
[2018-01-23] MEDS: FUROSEMIDE 40 MG TAB PO (08:30)
== END 2018-01-23 15:20 | disposition home or self-care (01) | DRG 871 ==
LOC: MS2 23:57 → E/R 15:02
DX: A41.9 Sepsis, unspecified organism (principal); J18.9 Pneumonia, unspecified organism; J96.01 Acute respiratory failure with hypoxia; N17.9 Acute kidney failure, unspecified; I82.611 Acute embolism and thrombosis of superficial veins of right upper extremity; T82.868A Thrombosis due to vascular prosthetic devices, implants and grafts, initial encounter; E66.2 Morbid (severe) obesity with alveolar hypoventilation; E11.9 Type 2 diabetes mellitus without complications; E78.5 Hyperlipidemia, unspecified; H40.9 Unspecified glaucoma; I10 Essential (primary) hypertension; M10.9 Gout, unspecified; R60.0 Localized edema; Z86.73 Personal history of transient ischemic attack (TIA), and cerebral infarction without residual deficits; Z68.35 Body mass index [BMI] 35.0-35.9, adult; Z79.84 Long term (current) use of oral hypoglycemic drugs
CPT/HCPCS: 36415; 36600; 71045; 71250; 76705; 80048; 80053; 80061; 82803; 82962; 83036; 83605; 83735; 83880; 84100; 84484; 84560; 85025; 85610; 85730; 87040; 87070; 87400; 90686; 93306; 93970; 93971; 94640; 94664; 96365; 96366; 96368; 97116; 97162; 97530; 99285-25